=== PATIENT | female | born 1995 | race Caucasian/White ===

== ENCOUNTER 2017-12-17 18:53 | Emergency (ER) | payer BC, MEDICAID ==
[~2017-12-17] VITALS: Ht 160 cm; Wt 60.9 kg
[2017-12-17] MEDS ORDERED: IBUPROFEN 200 MG TABLET PO ONE (19:30)
[2017-12-17] MEDS ORDERED: SODIUM CHLORIDE FLUSH 10ML SYR IVF ONE (19:30)
[2017-12-17] MEDS ORDERED: SODIUM CHLORIDE 0.9% 1,000ML IVBOLUS ONE ×3 (19:30→21:00)
[2017-12-17] MEDS ORDERED: ACETAMINOPHEN 500 MG TABLET PO ONE (19:30)
[2017-12-17 19:41] LABS: MEAN CORPUSCULAR HGB CONC 34.2 g/dL (32.4-35.8); MEAN CORPUSCULAR VOLUME 90.8 fL (80-100); MEAN PLATELET VOLUME 8.3 fL (7.4-10.4); PLATELET COUNT 356 x10^3/uL (130-400); RED BLOOD COUNT 4.95 x10^6/uL (3.82-5.3); RED CELL DISTRIBUTION WIDTH 12.4 % (9.6-15.2)
[2017-12-17] MEDS ORDERED: IBUPROFEN 200 MG TABLET ONE (19:44)
[2017-12-17] MEDS ORDERED: ACETAMINOPHEN 500 MG TABLET ONE (19:44)
[2017-12-17 19:50] LABS: ALBUMIN 4.3 g/dL (3.4-5.0); ANION GAP 13 mmol/L (5-15); CALCIUM 9.5 mg/dL (8.5-10.1); CHLORIDE 103 mmol/L (98-107)
[2017-12-17 19:55] LABS: ALANINE AMINOTRANSFERASE 16 U/L (12-78); ALKALINE PHOSPHATASE 78 U/L (45-117); BILIRUBIN,TOTAL 0.6 mg/dL (0.2-1.0); CREATININE 0.95 mg/dL (0.55-1.02); TOTAL PROTEIN 8.9 g/dL (6.4-8.2)
[2017-12-17] MEDS ORDERED: CEFTRIAXONE PMX 1GM/50ML 50 ML IV ONE (20:00)
[2017-12-17] MEDS ORDERED: PLEASE ENTER ALLERGIES MC SCH (20:00)
[2017-12-17 20:15] LABS: MD YES
[2017-12-17 20:17] LABS: <PLATELET ESTIMATE> ADEQUATE; <PLT MORPHOLOGY> NORMAL PLT MORPH; <RBC MORPHOLOGY> NORMAL; BAND#(MANUAL) 0.53 x10^3/uL; BANDS%(MANUAL) 2 % (0-7); LYMPH#(MANUAL) 1.32 x10^3/uL (1-3.4); LYMPHS% (MANUAL) 5 % (22-44); MONOS#(MANUAL) 2.37 x10^3/uL (0.3-2.7); MONOS% (MANUAL) 9 % (2-9); SEG#(MANUAL) 22.09 x10^3/uL (1.8-6.8); SEGS% (MANUAL) 84 % (42-75)
[2017-12-17] MEDS ORDERED: CEFTRIAXONE PMX 1GM/50ML 50 ML ONE (20:25)
[2017-12-17 20:31] LABS: FREE T4 (FREE THYROXINE) 0.97 ng/dL (0.76-1.46); THYROID STIMULATING HORMONE 0.661 mIU/L (0.358-3.740)
[2017-12-17 21:10] LABS: MICROSCOPIC AUTO
[2017-12-17 21:13] LABS: CULTURE INDICATED? YES
[2017-12-17 22:39] VITALS: BP 106/57
== END 2017-12-17 22:43 | disposition home or self-care (01) ==
LOC: ED 22:10
DX: J02.0 Streptococcal pharyngitis (principal); D72.829 Elevated white blood cell count, unspecified
CPT/HCPCS: 36415; 80053; 81001; 83605; 84439; 84443; 84703; 85025; 87086; 87880; 93005; 96361; 96365; 96366; 99285; J0696; J7030